=== PATIENT | female | born 1985 | race American Indian/Alaskan Native ===

== ENCOUNTER 2017-08-29 16:16 | Inpatient (IN) | payer MEDICAID, OTHER ==
[2017-08-29 17:17] LABS: Hematocrit 38.1 % (30.3-42.9); Hemoglobin 12.4 gm/dl (10.1-14.3); Mean Corpuscular HGB Conc 32 % (30-34); Mean Corpuscular Volume 74 fl (79-97); Platelet Count 372 K/mm3 (140-440); Red Blood Count 5.17 M/mm3 (3.65-5.03); Red Cell Distribution Width 13.9 % (13.2-15.2)
[2017-08-29 17:24] LABS: Alanine Aminotransferase 13 units/L (7-56); Albumin/Globulin Ratio 1.2 %; Alkaline Phosphatase 123 units/L (35-129); Anion Gap 20 mmol/L; BUN/Creatinine Ratio 40; Blood Urea Nitrogen 8 mg/dL (7-17); Calcium 9.2 mg/dL (8.4-10.2); Carbon Dioxide 23 mmol/L (22-30); Chloride 95.5 mmol/L (98-107); Glucose 113 mg/dL (65-100); Lipase 19 units/L (13-60); Sodium 134 mmol/L (137-145); Total Protein 7.4 g/dL (6.3-8.2)
[2017-08-29 17:28] LABS: Mean Corpuscular Hemoglobin 24 pg (28-32); White Blood Count 23.7 K/mm3 (4.5-11.0)
[2017-08-29 17:36] LABS: Bilirubin,Urine NEG (Negative); Blood,Urine NEG (Negative); Ketones,Urine 20 mg/dL (Negative); Leukocyte Esterase,Urine NEG (Negative); Mucus,Urine 3+ /HPF; Nitrite,Urine NEG (Negative); Protein,Urine <15 mg/dL mg/dL (Negative); Urobilinogen,Urine < 2.0 mg/dL (<2.0)
[2017-08-29 19:50] LABS: Anisocytosis 1+; Basophils % (Manual) 0 % (0.0-1.8); Blastocytes % (Manual) 0 %; Elliptocytes 1+; Eosinophils % (Manual) 0 % (0.0-4.3); Total Cells Counted Percent 0
[2017-08-29 19:51] LABS: Diff Status Complete; Platelet Estimate Consistent w Auto
[2017-08-29] MEDS ORDERED: NACL 0.9% 1000 ML 1,000 ML ONE (20:49)
[2017-08-29] MEDS ORDERED: NACL 0.9% 1000 ML 1,000 ML IV ONE (20:50)
[2017-08-29] MEDS ORDERED: ZOFRAN IV ONE (20:53)
[2017-08-29] MEDS ORDERED: MORPHINE IV ONE ×2 (20:53→23:04)
--- NOTE | 2017-08-29 20:55 | Emergency Department Report ---
HPI - General Chief Complaint: Abdominal Pain Time Seen by Provider: 08/29/17 20:48 - HPI HPI: 32-year-old Afro-Bangl[place]hi female presents to the emergency department with complaint of a few days of lower abdominal and/or pelvic pain and now some nausea and vomiting that started today. Patient says that she might be as her last menstrual cycle was June 13, and she had a home test. However a few weeks ago she went to a emergency department in [place] and was told that she might be having a miscarriage. With this she would be with 3 live children. She denies any fever, dysuria, cough, vaginal discharge, current vaginal bleeding, back pain, chest pain or shortness of breath. She has not taken anything for her symptoms prior to presentation. She does not have an HIGH SPEED PRINTER OPERATOR or a primary care physician. She denies any other past medical history besides a previous "liver mass" that was removed last year. ED Past Medical Hx - Past Medical History Previous Medical History?: No - Surgical History Hx Appendectomy: Yes Additional Surgical History: abd mass from liver - Social History Smoking Status: Never Smoker Substance Use Type: None - Medications Home Medications: Home Medications Medication Instructions Recorded Confirmed Last Taken Type No Known Home Medications [No 08/30/17 08/30/17 Unknown History Reported Home Medications] ED Review of Systems ROS: Stated complaint: PREG, VOMITING ABDOMINAL PAIN Other details as noted in HPI Comment: All other systems reviewed and negative Constitutional: denies: chills, fever Eyes: denies: eye pain, eye discharge, vision change ENT: denies: ear pain, throat pain Respiratory: denies: cough, shortness of breath, wheezing Cardiovascular: denies: chest pain, palpitations Gastrointestinal: abdominal pain, nausea, vomiting Genitourinary: denies: dysuria, discharge Musculoskeletal: denies: back pain, joint swelling, arthralgia Skin: denies: rash, lesions Neurological: denies: headache, weakness, paresthesias Physical Exam - Physical Exam Vital Signs: Vital Signs 08/29/17 16:44 Temperature 98.2 F Pulse Rate 127 H Respiratory 20 Rate Blood Pressure 128/71 O2 Sat by Pulse 98 Oximetry Physical Exam: GENERAL: The patient is well-developed well-nourished. HENT: Normocephalic. Atraumatic. Patient has moist mucous membranes. EYES: Extraocular motions are intact. Pupils equal reactive to light bilaterally. NECK: Supple. Trachea is midline. CHEST/LUNGS: Clear to auscultation. There is no respiratory distress noted. HEART/CARDIOVASCULAR: Regular. There is mild to moderate tachycardia. There is no gallop rub or murmur. ABDOMEN: Abdomen is soft. Lower abdominal tenderness to palpation. No guarding or rebound tenderness. Patient has normal bowel sounds. There is no abdominal distention. SKIN: Skin is warm and dry. NEURO: The patient is awake, alert, and oriented. The patient is cooperative. The patient has no focal neurologic deficits. The patient has normal speech. MUSCULOSKELETAL: There is no tenderness or deformity. There is no limitation range of motion. There is no evidence of acute injury. ED Course Vital Signs 08/29/17 16:44 Temperature 98.2 F Pulse Rate 127 H Respiratory 20 Rate Blood Pressure 128/71 O2 Sat by Pulse 98 Oximetry - Consultations Consultation #1: After the patient had the ultrasound showing no intrauterine or extrauterine gestation with a beta hCG of 12, spoke to the HIGH SPEED PRINTER OPERATOR supervisor inspection Dr. Sampson who agrees that the patient appears safe for CT imaging of the abdomen and pelvis as she appears to have had a previous miscarriage. 08/30/17 05:09 ED Medical Decision Making - Lab Data Result diagrams: 08/29/17 16:53 08/29/17 16:53 - Radiology Data Radiology results: report reviewed PROCEDURE: CT ABDOMEN PELVIS W CON TECHNIQUE: Computerized axial tomography of the abdomen and pelvis was performed after the IV injection of iodinated nonionic contrast. HISTORY: abd/pelvic pain COMPARISON: No prior studies are available for comparison. FINDINGS: Visualized lower thorax: No significant abnormality. Liver: Normal size and attenuation. Spleen: Normal size and attenuation. Gallbladder and biliary system: Normal. Pancreas: Normal. Adrenals: Normal. Kidneys: Normal. GI tract: There is mucosal thickening of the sigmoid and left colon consistent with colitis. There is no obstruction or perforation. The stomach, small bowel are unremarkable. The appendix is not identified.. Lymph nodes and mesentery: Normal. Vasculature: There is no aortic aneurysm.. Bladder: Normal. Reproductive organs: Uterus and ovaries are unremarkable. There are prominent left pelvic veins and left ovarian vein which could be evidence of ovarian vein insufficiency and pelvic venous congestion syndrome. There is no thrombosis.. Peritoneum: There is no ascites or free air, abscess or adenopathy.. Musculoskeletal structures: No significant abnormality. Other: None. IMPRESSION: There is mucosal thickening of the sigmoid and left colon consistent with colitis. There is no obstruction or perforation. The stomach, small bowel are unremarkable. The appendix is not identified.. There is no indirect evidence of appendicitis. There are prominent left pelvic veins and left ovarian vein which could be evidence of ovarian vein insufficiency and pelvic venous congestion syndrome. There is no venous thrombosis.. There is no ascites or free air, abscess or adenopathy.. Transcribed By: CO Dictated By: MELISSA BERNAL MD Electronically Authenticated By: MELISSA BERNAL MD Signed Date/Time: 08/29/17 9524 PROCEDURE: US OB TRANSVAGINAL TECHNIQUE: Real-time transvaginal sonography of the uterus, placenta, amniotic fluid, adnexa, and fetus was performed with image documentation. Measurements were obtained to determine age/size. M-mode Doppler was used to document heartbeat. CPT 62903 HISTORY: pelvic pain, low BHCG, leukocytosis COMPARISON: Transabdominal OB ultrasound also performed today. FINDINGS: The report for this exam was generated using images from both the transabdominal and a transvaginal OB ultrasound both of which were performed today. The uterus is anteverted and measures 8.7 x 4.7 x 5.1 centimeter. The endometrial stripe measures 6.2 millimeter in thickness. There is no fluid in the endometrial canal. No evidence of intrauterine gestation. Gestational sac is not visualized. No free fluid is seen in the cul-de-sac. The right and left ovaries are visualized and show no abnormalities. Small peripheral follicles are visualized. Arterial flow visualized in both ovaries with Doppler imaging IMPRESSION: Negative exam. No acute or focal abnormality is seen. There is no evidence for intrauterine gestation. Recommend correlating this finding with serial beta HCG units and follow-up pelvic ultrasound if clinically indicated. Ectopic cannot be entirely excluded at this time. An ectopic is not visualized at this time. - Medical Decision Making The patient had a beta hCG of 12 and then an ultrasound that did not show any intrauterine or extrauterine gestation. Along with her history of possible miscarriage after visiting the [facility], and a beta hCG of 12, it does appear consistent with a spontaneous miscarriage. She has a leukocytosis with left shift, lower abdominal pain and tachycardia. CT of the abdomen and pelvis was done and came back showing colitis. Blood cultures were sent and the patient was started on Zosyn. She will be admitted to the hospital for further evaluation and treatment and has been accepted for admission by the hospitalist , Dr Mann. - Differential Diagnosis , miscarriage, diverticulitis, colitis, sepsis, uti Critical Care Time: No Critical care attestation.: If time is entered above; I have spent that time in minutes in the direct care of this critically ill patient, excluding procedure time. ED Disposition Clinical Impression: Colitis Abdominal pain Qualifiers: Abdominal location: lower abdomen, unspecified Qualified Code(s): R10.30 - Lower abdominal pain, unspecified Leukocytosis Qualifiers: Leukocytosis type: unspecified Qualified Code(s): D72.829 - Elevated white blood cell count, unspecified Disposition: -09 OP ADMIT IP TO THIS HOSP Is pt being admited?: Yes Condition: Stable Instructions: Abdominal Pain (ED) Referrals: PRIMARY CARE, [Primary Care Provider] - 3-5 Days Time of Disposition: 03:55
[2017-08-29] MEDS ORDERED: BENADRYL ONE (21:22)
[2017-08-29] MEDS ORDERED: BENADRYL IV ONE (21:22)
--- NOTE | 2017-08-29 22:18 | Ultrasound Report ---
FINAL REPORT PROCEDURE: US OB < = 14 WEEKS FETUS TECHNIQUE: Real-time transabdominal sonography of the uterus, placenta, amniotic fluid, adnexa, and fetus was performed with image documentation. Measurements were obtained to determine age/size. M-mode Doppler was used to document heartbeat. CPT 43880 HISTORY: pelvic pain, low BHCG, leukocytosis COMPARISON: Transvaginal OB ultrasound also performed today. FINDINGS: The report for this exam was generated using images from both the transabdominal and a transvaginal OB ultrasound both of which were performed today. The uterus is anteverted and measures 8.7 x 4.7 x 5.1 centimeter. The endometrial stripe measures 6.2 millimeter in thickness. There is no fluid in the endometrial canal. No evidence of intrauterine gestation. Gestational sac is not visualized. No free fluid is seen in the cul-de-sac. The right and left ovaries are visualized and show no abnormalities. Small peripheral follicles are visualized. Arterial flow visualized in both ovaries with Doppler imaging. IMPRESSION: Negative exam. No acute or focal abnormality is seen. There is no evidence for intrauterine gestation. Recommend correlating this finding with serial beta HCG units and follow-up pelvic ultrasound if clinically indicated. Ectopic cannot be entirely excluded at this time. An ectopic is not visualized at this time.
--- NOTE | 2017-08-29 22:19 | Ultrasound Report ---
FINAL REPORT PROCEDURE: US OB TRANSVAGINAL TECHNIQUE: Real-time transvaginal sonography of the uterus, placenta, amniotic fluid, adnexa, and fetus was performed with image documentation. Measurements were obtained to determine age/size. M-mode Doppler was used to document heartbeat. CPT 43255 HISTORY: pelvic pain, low BHCG, leukocytosis COMPARISON: Transabdominal OB ultrasound also performed today. FINDINGS: The report for this exam was generated using images from both the transabdominal and a transvaginal OB ultrasound both of which were performed today. The uterus is anteverted and measures 8.7 x 4.7 x 5.1 centimeter. The endometrial stripe measures 6.2 millimeter in thickness. There is no fluid in the endometrial canal. No evidence of intrauterine gestation. Gestational sac is not visualized. No free fluid is seen in the cul-de-sac. The right and left ovaries are visualized and show no abnormalities. Small peripheral follicles are visualized. Arterial flow visualized in both ovaries with Doppler imaging IMPRESSION: Negative exam. No acute or focal abnormality is seen. There is no evidence for intrauterine gestation. Recommend correlating this finding with serial beta HCG units and follow-up pelvic ultrasound if clinically indicated. Ectopic cannot be entirely excluded at this time. An ectopic is not visualized at this time.
[2017-08-29] MEDS ORDERED: NACL ONE (23:47)
--- NOTE | 2017-08-30 03:41 | Cat Scan Report ---
FINAL REPORT PROCEDURE: CT ABDOMEN PELVIS W CON TECHNIQUE: Computerized axial tomography of the abdomen and pelvis was performed after the IV injection of iodinated nonionic contrast. HISTORY: abd/pelvic pain COMPARISON: No prior studies are available for comparison. FINDINGS: Visualized lower thorax: No significant abnormality. Liver: Normal size and attenuation. Spleen: Normal size and attenuation. Gallbladder and biliary system: Normal. Pancreas: Normal. Adrenals: Normal. Kidneys: Normal. GI tract: There is mucosal thickening of the sigmoid and left colon consistent with colitis. There is no obstruction or perforation. The stomach, small bowel are unremarkable. The appendix is not identified.. Lymph nodes and mesentery: Normal. Vasculature: There is no aortic aneurysm.. Bladder: Normal. Reproductive organs: Uterus and ovaries are unremarkable. There are prominent left pelvic veins and left ovarian vein which could be evidence of ovarian vein insufficiency and pelvic venous congestion syndrome. There is no thrombosis.. Peritoneum: There is no ascites or free air, abscess or adenopathy.. Musculoskeletal structures: No significant abnormality. Other: None. IMPRESSION: There is mucosal thickening of the sigmoid and left colon consistent with colitis. There is no obstruction or perforation. The stomach, small bowel are unremarkable. The appendix is not identified.. There is no indirect evidence of appendicitis. There are prominent left pelvic veins and left ovarian vein which could be evidence of ovarian vein insufficiency and pelvic venous congestion syndrome. There is no venous thrombosis.. There is no ascites or free air, abscess or adenopathy..
[2017-08-30] MEDS ORDERED: ZOSYN/NS 4.5GM/100ML 4.5 GM/100 ML VIAL IV ONE (03:45)
[2017-08-30] MEDS ORDERED: MORPHINE IV ONE (05:28)
[2017-08-30] MEDS: HEPARIN SUB-Q SCH ×3 (05:37→22:58)
--- NOTE | 2017-08-30 07:20 | History and Physical Report ---
History of Present Illness Date of admission: 08/30/17 03:56 Chief complaint: Lower abdominal pain History of present illness: 32-year-old woman with no chronic medical problems By her accounts was . Last menstrual cycle was June 13. And she took a home test to confirm . She states that she was seen at [place] emergency departments a few weeks ago and she was told that she might be having a miscarriage, she was having vaginal bleeding at that time which has now resolved. She denies any fever, dysuria, cough or vaginal discharge. She's not currently bleeding from her vagina. She is complaining of lower abdominal and pelvic pain along with nausea and vomiting. The pain is 6 out of 10 and it is dull is generalized exacerbating or relieving factors Past History Past Medical History: No medical history Past Surgical History: Other (removal of liver cyst) Social history: no significant social history Family history: no significant family history Medications and Allergies Allergies Allergy/AdvReac Type Severity Reaction Status Date / Time No Known Allergies Allergy Unverified 08/29/17 16:44 Home Medications Medication Instructions Recorded Confirmed Last Taken Type No Known Home Medications [No 08/30/17 08/30/17 Unknown History Reported Home Medications] Active Meds: Active Medications Heparin Sodium (Porcine) (Heparin) 5,000 unit SUB-Q Q8HR PERFECTO Last Admin: 08/30/17 05:37 Dose: 5,000 unit Review of Systems All systems: negative Gastrointestinal: abdominal pain, nausea, vomiting, no diarrhea Exam - Constitutional Vitals: Temp Pulse Resp BP Pulse Ox 98.4 F 101 H 17 119/75 96 08/30/17 05:57 08/30/17 03:50 08/30/17 01:30 08/30/17 07:00 08/30/17 07:00 General appearance: Present: no acute distress, well-nourished - EENT Eyes: Present: PERRL ENT: hearing intact, clear oral mucosa - Neck Neck: Present: supple, normal ROM - Respiratory Respiratory effort: normal Respiratory: bilateral: CTA - Cardiovascular Heart Sounds: Present: S1 & S2. Absent: rub, click - Extremities Extremities: pulses symmetrical, No edema Peripheral Pulses: within normal limits - Abdominal General gastrointestinal: Present: soft, non-distended, normal bowel sounds Localized gastrointestinal: guarding: suprapubic Female genitourinary: Present: normal - Integumentary Integumentary: Present: clear, warm, dry - Musculoskeletal Musculoskeletal: gait normal, strength equal bilaterally - Psychiatric Psychiatric: appropriate mood/affect, intact judgment & insight - Neurologic Neurologic: CNII-XII intact, moves all extremities Results - Labs CBC & Chem 7: 08/29/17 16:53 08/29/17 16:53 Labs: Laboratory Last Values WBC 23.7 K/mm3 (4.5-11.0) H 08/29/17 16:53 RBC 5.17 M/mm3 (3.65-5.03) H 08/29/17 16:53 Hgb 12.4 gm/dl (10.1-14.3) 08/29/17 16:53 Hct 38.1 % (30.3-42.9) 08/29/17 16:53 MCV 74 fl (79-97) L 08/29/17 16:53 MCH 24 pg (28-32) L 08/29/17 16:53 MCHC 32 % (30-34) 08/29/17 16:53 RDW 13.9 % (13.2-15.2) 08/29/17 16:53 Plt Count 372 K/mm3 (140-440) 08/29/17 16:53 Add Manual Diff Complete 08/29/17 16:53 Total Counted 100 08/29/17 16:53 Seg Neuts % (Manual) 87.0 % (40.0-70.0) H 08/29/17 16:53 Band Neutrophils % 4.0 % 08/29/17 16:53 Lymphocytes % (Manual) 9.0 % (13.4-35.0) L 08/29/17 16:53 Reactive Lymphs % (Man) 0 % 08/29/17 16:53 Monocytes % (Manual) 0 % (0.0-7.3) 08/29/17 16:53 Eosinophils % (Manual) 0 % (0.0-4.3) 08/29/17 16:53 Basophils % (Manual) 0 % (0.0-1.8) 08/29/17 16:53 Metamyelocytes % 0 % 08/29/17 16:53 Myelocytes % 0 % 08/29/17 16:53 Promyelocytes % 0 % 08/29/17 16:53 Blast Cells % 0 % 08/29/17 16:53 Nucleated RBC % Not Reportable 08/29/17 16:53 Seg Neutrophils # Man 20.6 K/mm3 (1.8-7.7) H 08/29/17 16:53 Band Neutrophils # 0.9 K/mm3 08/29/17 16:53 Lymphocytes # (Manual) 2.1 K/mm3 (1.2-5.4) 08/29/17 16:53 Abs React Lymphs (Man) 0.0 K/mm3 08/29/17 16:53 Monocytes # (Manual) 0.0 K/mm3 (0.0-0.8) 08/29/17 16:53 Eosinophils # (Manual) 0.0 K/mm3 (0.0-0.4) 08/29/17 16:53 Basophils # (Manual) 0.0 K/mm3 (0.0-0.1) 08/29/17 16:53 Metamyelocytes # 0.0 K/mm3 08/29/17 16:53 Myelocytes # 0.0 K/mm3 08/29/17 16:53 Promyelocytes # 0.0 K/mm3 08/29/17 16:53 Blast Cells # 0.0 K/mm3 08/29/17 16:53 WBC Morphology Not Reportable 08/29/17 16:53 Hypersegmented Neuts Not Reportable 08/29/17 16:53 Hyposegmented Neuts Not Reportable 08/29/17 16:53 Hypogranular Neuts Not Reportable 08/29/17 16:53 Smudge Cells Not Reportable 08/29/17 16:53 Toxic Granulation Not Reportable 08/29/17 16:53 Toxic Vacuolation Not Reportable 08/29/17 16:53 Dohle Bodies Not Reportable 08/29/17 16:53 Pelger-Huet Anomaly Not Reportable 08/29/17 16:53 Lee Rods Not Reportable 08/29/17 16:53 Platelet Estimate Consistent w auto 08/29/17 16:53 Clumped Platelets Not Reportable 08/29/17 16:53 Plt Clumps, EDTA Not Reportable 08/29/17 16:53 Large Platelets Not Reportable 08/29/17 16:53 Giant Platelets Not Reportable 08/29/17 16:53 Platelet Satelliting Not Reportable 08/29/17 16:53 Plt Morphology Comment Not Reportable 08/29/17 16:53 RBC Morphology Not Reportable 08/29/17 16:53 Dimorphic RBCs Not Reportable 08/29/17 16:53 Polychromasia Not Reportable 08/29/17 16:53 Hypochromasia Not Reportable 08/29/17 16:53 Poikilocytosis Not Reportable 08/29/17 16:53 Anisocytosis 1+ 08/29/17 16:53 Microcytosis Not Reportable 08/29/17 16:53 Macrocytosis Not Reportable 08/29/17 16:53 Spherocytes Not Reportable 08/29/17 16:53 Pappenheimer Bodies Not Reportable 08/29/17 16:53 Sickle Cells Not Reportable 08/29/17 16:53 Target Cells Not Reportable 08/29/17 16:53 Tear Drop Cells Not Reportable 08/29/17 16:53 Ovalocytes Not Reportable 08/29/17 16:53 Helmet Cells Not Reportable 08/29/17 16:53 [place] Bodies Not Reportable 08/29/17 16:53 [place] Rings Not Reportable 08/29/17 16:53 Evan Cells Not Reportable 08/29/17 16:53 Bite Cells Not Reportable 08/29/17 16:53 Crenated Cell Not Reportable 08/29/17 16:53 Elliptocytes 1+ 08/29/17 16:53 Acanthocytes (Spur) Not Reportable 08/29/17 16:53 Rouleaux Not Reportable 08/29/17 16:53 Hemoglobin C Crystals Not Reportable 08/29/17 16:53 Schistocytes Not Reportable 08/29/17 16:53 Malaria parasites Not Reportable 08/29/17 16:53 Vasile Bodies Not Reportable 08/29/17 16:53 Hem Pathologist Commnt No 08/29/17 16:53 Sodium 134 mmol/L (137-145) L 08/29/17 16:53 Potassium 4.0 mmol/L (3.6-5.0) 08/29/17 16:53 Chloride 95.5 mmol/L (98-107) L 08/29/17 16:53 Carbon Dioxide 23 mmol/L (22-30) 08/29/17 16:53 Anion Gap 20 mmol/L 08/29/17 16:53 BUN 8 mg/dL (7-17) 08/29/17 16:53 Creatinine 0.2 mg/dL (0.7-1.2) L 08/29/17 16:53 Estimated GFR > 60 ml/min 08/29/17 16:53 BUN/Creatinine Ratio 40 % 08/29/17 16:53 Glucose 113 mg/dL (65-100) H 08/29/17 16:53 Calcium 9.2 mg/dL (8.4-10.2) 08/29/17 16:53 Total Bilirubin 0.20 mg/dL (0.1-1.2) 08/29/17 16:53 AST 11 units/L (5-40) 08/29/17 16:53 ALT 13 units/L (7-56) 08/29/17 16:53 Alkaline Phosphatase 123 units/L (35-129) 08/29/17 16:53 Total Protein 7.4 g/dL (6.3-8.2) 08/29/17 16:53 Albumin 4.0 g/dL (3.9-5) 08/29/17 16:53 Albumin/Globulin Ratio 1.2 % 08/29/17 16:53 Lipase 19 units/L (13-60) 08/29/17 16:53 HCG, Quant 12.23 mIU/mL (0-4) H 08/29/17 16:53 Urine Color Yellow (Yellow) 08/29/17 17:00 Urine Turbidity Clear (Clear) 08/29/17 17:00 Urine pH 5.0 (5.0-7.0) 08/29/17 17:00 Ur Specific [place] 1.026 (1.003-1.030) 08/29/17 17:00 Urine Protein <15 mg/dl mg/dL (Negative) 08/29/17 17:00 Urine Glucose (UA) Neg mg/dL (Negative) 08/29/17 17:00 Urine Ketones 20 mg/dL (Negative) 08/29/17 17:00 Urine Blood Neg (Negative) 08/29/17 17:00 Urine Nitrite Neg (Negative) 08/29/17 17:00 Urine Bilirubin Neg (Negative) 08/29/17 17:00 Urine Urobilinogen < 2.0 mg/dL (<2.0) 08/29/17 17:00 Ur Leukocyte Esterase Neg (Negative) 08/29/17 17:00 Urine WBC (Auto) 1.0 /HPF (0.0-6.0) 08/29/17 17:00 Urine RBC (Auto) 3.0 /HPF (0.0-6.0) 08/29/17 17:00 U Epithel Cells (Auto) 1.0 /HPF (0-13.0) 08/29/17 17:00 Urine Mucus 3+ /HPF 08/29/17 17:00 - Imaging and Cardiology CT scan - abdomen: image reviewed (colitis) Imaging and Cardiology: Trans vag U/S no fetus is seen Assessment and Plan Assessment and plan: 32-year-old woman who was . Was told that she might have been having miscarriage 2 weeks ago and another facility. Presents now with abdominal pain. HCG numbers are too low to correlates with the duration of her supposedly , and imaging shows no fetus and the uterus. Therefore it is most likely that she had a miscarriage. - Patient Problems (1) Sepsis Current Visit: Yes Status: Acute Plan to address problem: Continue antibiotics. (2) Miscarriage Current Visit: Yes Status: Acute Plan to address problem: HISTORY PROFESSOR has been consulted, will follow-up the recommendations (3) Colitis Current Visit: Yes Status: Acute Plan to address problem: continue abx, IVF and pain meds as needed
[2017-08-30] MEDS ORDERED: TYLENOL PO PRN (07:26)
[2017-08-30] MEDS ORDERED: MILK OF MAGNESIA PO PRN (07:26)
[2017-08-30] MEDS ORDERED: DULCOLAX PR PRN (07:26)
[2017-08-30] MEDS: FLAGYL 500 MG/100 ML 500 MG/100 ML BAG IV SCH ×3 (10:04→22:51)
[2017-08-30] MEDS: MORPHINE IV PRN ×3 (10:04→23:07)
[2017-08-30] MEDS: ZOFRAN IV PRN (10:05)
[2017-08-30] MEDS: cefTRIAXone 1 GM in NACL 0.9% 20 ML IV SCH (11:22)
--- NOTE | 2017-08-30 13:01 | Event Note ---
Date: 08/30/17 Patient was admitted overnight to sepsis colitis. Patient seen and examined. Abdominal pain is improved. Still with nausea vomiting.
[2017-08-31] MEDS: MORPHINE IV PRN ×4 (05:05→21:12)
[2017-08-31] MEDS: ZOFRAN IV PRN ×2 (05:05→16:07)
[2017-08-31 05:35] LABS: Basophils % (Auto) 0.3 % (0.0-1.8); Eosinophils % (Auto) 0.2 % (0.0-4.3); Hematocrit 35.8 % (30.3-42.9); Hemoglobin 11.5 gm/dl (10.1-14.3); Mean Corpuscular HGB Conc 32 % (30-34); Mean Corpuscular Hemoglobin 24 pg (28-32); Mean Corpuscular Volume 74 fl (79-97); Platelet Count 340 K/mm3 (140-440); Red Blood Count 4.85 M/mm3 (3.65-5.03); Red Cell Distribution Width 13.7 % (13.2-15.2); White Blood Count 13.7 K/mm3 (4.5-11.0)
[2017-08-31] MEDS: FLAGYL 500 MG/100 ML 500 MG/100 ML BAG IV SCH ×3 (05:55→21:12)
[2017-08-31] MEDS: HEPARIN SUB-Q SCH ×3 (05:55→21:13)
[2017-08-31 05:58] LABS: Anion Gap 22 mmol/L; BUN/Creatinine Ratio 45; Blood Urea Nitrogen 9 mg/dL (7-17); Calcium 9.3 mg/dL (8.4-10.2); Carbon Dioxide 21 mmol/L (22-30); Chloride 97.8 mmol/L (98-107); Glucose 81 mg/dL (65-100); Potassium 3.8 mmol/L (3.6-5.0); Sodium 137 mmol/L (137-145)
[2017-08-31] MEDS: cefTRIAXone 1 GM in NACL 0.9% 20 ML IV SCH (10:55)
--- NOTE | 2017-08-31 11:43 | Progress Note ---
Assessment and Plan Assessment and plan: Patient is a 32-year-old woman who was . Was told that she might have been having miscarriage 2 weeks ago and another facility. Presents now with abdominal pain. HCG numbers are too low to correlates with the duration of her supposedly , and imaging shows no fetus and the uterus. Therefore it is most likely that she had a miscarriage. (1) Sepsis colitis Current Visit: Yes Status: Acute Plan to address problem: Continue antibiotics. (2) Miscarriage Current Visit: Yes Status: Acute Plan to address problem: COIL STRAPPER has been consulted, will follow-up the recommendations (3) Colitis Current Visit: Yes Status: Acute Plan to address problem: continue abx, IVF and pain meds as needed Advance diet to liquids only and she can tolerate that she can go home tomorrow History Interval history: Patient was seen and examined. Follow-up on current diagnosis/nausea vomiting still present with solids but not liquids. Overnight uneventful. Patient denies any chest pain, shortness breath, or severe headaches. Imaging, nursing note, chart, labs and old chart reviewed. Discussed with patient. Patient is able to tolerate liquid diet she vomited up solid foods Hospitalist Physical - Physical exam Narrative exam: GEN: Thin BMI 17.6 NAD, AWAKE, ALERT, ORIENTATED 3 HEENT: NCAT, EOMI, PERRL, OP Clear NECK: supple, no adenopathy, no thyromegaly, no JVD CVS/HEART: RRR, NORMAL S1S2, NO JVD, pulses present bilaterally CHEST/LUNGS: CTA B, Symmetrical chest expansion, good air entry bilaterally GI/Abdomen: soft, NTND, good bowel sounds, no guarding or rebound /Bladder: no suprapubic tenderness, no CVA or paraspinal tenderness EXT/Skin: no c/c/e, no obvious rash MSK: FROM x 4 Neuro: CN 2-12 grossly intact, no new focal deficits Psych: calm - Constitutional Vitals: Temp Pulse Resp BP Pulse Ox 98.9 F 101 H 20 117/69 97 08/31/17 07:38 08/31/17 07:38 08/31/17 10:10 08/31/17 07:38 08/31/17 07:38 General appearance: Present: no acute distress, well-nourished Results - Labs CBC & Chem 7: 08/31/17 05:15 08/31/17 05:15 Labs: Laboratory Last Values WBC 13.7 K/mm3 (4.5-11.0) H 08/31/17 05:15 RBC 4.85 M/mm3 (3.65-5.03) 08/31/17 05:15 Hgb 11.5 gm/dl (10.1-14.3) 08/31/17 05:15 Hct 35.8 % (30.3-42.9) 08/31/17 05:15 MCV 74 fl (79-97) L 08/31/17 05:15 MCH 24 pg (28-32) L 08/31/17 05:15 MCHC 32 % (30-34) 08/31/17 05:15 RDW 13.7 % (13.2-15.2) 08/31/17 05:15 Plt Count 340 K/mm3 (140-440) 08/31/17 05:15 Lymph % (Auto) 22.4 % (13.4-35.0) 08/31/17 05:15 [place] % (Auto) 10.1 % (0.0-7.3) H 08/31/17 05:15 Eos % (Auto) 0.2 % (0.0-4.3) 08/31/17 05:15 Baso % (Auto) 0.3 % (0.0-1.8) 08/31/17 05:15 Lymph # 3.1 K/mm3 (1.2-5.4) 08/31/17 05:15 [place] # 1.4 K/mm3 (0.0-0.8) H 08/31/17 05:15 Eos # 0.0 K/mm3 (0.0-0.4) 08/31/17 05:15 Baso # 0.0 K/mm3 (0.0-0.1) 08/31/17 05:15 Add Manual Diff Complete 08/29/17 16:53 Total Counted 100 08/29/17 16:53 Seg Neutrophils % 67.0 % (40.0-70.0) 08/31/17 05:15 Seg Neuts % (Manual) 87.0 % (40.0-70.0) H 08/29/17 16:53 Band Neutrophils % 4.0 % 08/29/17 16:53 Lymphocytes % (Manual) 9.0 % (13.4-35.0) L 08/29/17 16:53 Reactive Lymphs % (Man) 0 % 08/29/17 16:53 Monocytes % (Manual) 0 % (0.0-7.3) 08/29/17 16:53 Eosinophils % (Manual) 0 % (0.0-4.3) 08/29/17 16:53 Basophils % (Manual) 0 % (0.0-1.8) 08/29/17 16:53 Metamyelocytes % 0 % 08/29/17 16:53 Myelocytes % 0 % 08/29/17 16:53 Promyelocytes % 0 % 08/29/17 16:53 Blast Cells % 0 % 08/29/17 16:53 Nucleated RBC % Not Reportable 08/29/17 16:53 Seg Neutrophils # 9.2 K/mm3 (1.8-7.7) H 08/31/17 05:15 Seg Neutrophils # Man 20.6 K/mm3 (1.8-7.7) H 08/29/17 16:53 Band Neutrophils # 0.9 K/mm3 08/29/17 16:53 Lymphocytes # (Manual) 2.1 K/mm3 (1.2-5.4) 08/29/17 16:53 Abs React Lymphs (Man) 0.0 K/mm3 08/29/17 16:53 Monocytes # (Manual) 0.0 K/mm3 (0.0-0.8) 08/29/17 16:53 Eosinophils # (Manual) 0.0 K/mm3 (0.0-0.4) 08/29/17 16:53 Basophils # (Manual) 0.0 K/mm3 (0.0-0.1) 08/29/17 16:53 Metamyelocytes # 0.0 K/mm3 08/29/17 16:53 Myelocytes # 0.0 K/mm3 08/29/17 16:53 Promyelocytes # 0.0 K/mm3 08/29/17 16:53 Blast Cells # 0.0 K/mm3 08/29/17 16:53 WBC Morphology Not Reportable 08/29/17 16:53 Hypersegmented Neuts Not Reportable 08/29/17 16:53 Hyposegmented Neuts Not Reportable 08/29/17 16:53 Hypogranular Neuts Not Reportable 08/29/17 16:53 Smudge Cells Not Reportable 08/29/17 16:53 Toxic Granulation Not Reportable 08/29/17 16:53 Toxic Vacuolation Not Reportable 08/29/17 16:53 Dohle Bodies Not Reportable 08/29/17 16:53 Pelger-Huet Anomaly Not Reportable 08/29/17 16:53 Lee Rods Not Reportable 08/29/17 16:53 Platelet Estimate Consistent w auto 08/29/17 16:53 Clumped Platelets Not Reportable 08/29/17 16:53 Plt Clumps, EDTA Not Reportable 08/29/17 16:53 Large Platelets Not Reportable 08/29/17 16:53 Giant Platelets Not Reportable 08/29/17 16:53 Platelet Satelliting Not Reportable 08/29/17 16:53 Plt Morphology Comment Not Reportable 08/29/17 16:53 RBC Morphology Not Reportable 08/29/17 16:53 Dimorphic RBCs Not Reportable 08/29/17 16:53 Polychromasia Not Reportable 08/29/17 16:53 Hypochromasia Not Reportable 08/29/17 16:53 Poikilocytosis Not Reportable 08/29/17 16:53 Anisocytosis 1+ 08/29/17 16:53 Microcytosis Not Reportable 08/29/17 16:53 Macrocytosis Not Reportable 08/29/17 16:53 Spherocytes Not Reportable 08/29/17 16:53 Pappenheimer Bodies Not Reportable 08/29/17 16:53 Sickle Cells Not Reportable 08/29/17 16:53 Target Cells Not Reportable 08/29/17 16:53 Tear Drop Cells Not Reportable 08/29/17 16:53 Ovalocytes Not Reportable 08/29/17 16:53 Helmet Cells Not Reportable 08/29/17 16:53 [place] Bodies Not Reportable 08/29/17 16:53 [place] Rings Not Reportable 08/29/17 16:53 [place] Cells Not Reportable 08/29/17 16:53 Bite Cells Not Reportable 08/29/17 16:53 Crenated Cell Not Reportable 08/29/17 16:53 Elliptocytes 1+ 08/29/17 16:53 Acanthocytes (Spur) Not Reportable 08/29/17 16:53 Rouleaux Not Reportable 08/29/17 16:53 Hemoglobin C Crystals Not Reportable 08/29/17 16:53 Schistocytes Not Reportable 08/29/17 16:53 Malaria parasites Not Reportable 08/29/17 16:53 Vasile Bodies Not Reportable 08/29/17 16:53 Hem Pathologist Commnt No 08/29/17 16:53 Sodium 137 mmol/L (137-145) 08/31/17 05:15 Potassium 3.8 mmol/L (3.6-5.0) 08/31/17 05:15 Chloride 97.8 mmol/L (98-107) L 08/31/17 05:15 Carbon Dioxide 21 mmol/L (22-30) L 08/31/17 05:15 Anion Gap 22 mmol/L 08/31/17 05:15 BUN 9 mg/dL (7-17) 08/31/17 05:15 Creatinine 0.2 mg/dL (0.7-1.2) L 08/31/17 05:15 Estimated GFR > 60 ml/min 08/31/17 05:15 BUN/Creatinine Ratio 45 % 08/31/17 05:15 Glucose 81 mg/dL (65-100) 08/31/17 05:15 Calcium 9.3 mg/dL (8.4-10.2) 08/31/17 05:15 Total Bilirubin 0.20 mg/dL (0.1-1.2) 08/29/17 16:53 AST 11 units/L (5-40) 08/29/17 16:53 ALT 13 units/L (7-56) 08/29/17 16:53 Alkaline Phosphatase 123 units/L (35-129) 08/29/17 16:53 Total Protein 7.4 g/dL (6.3-8.2) 08/29/17 16:53 Albumin 4.0 g/dL (3.9-5) 08/29/17 16:53 Albumin/Globulin Ratio 1.2 % 08/29/17 16:53 Lipase 19 units/L (13-60) 08/29/17 16:53 HCG, Quant 12.23 mIU/mL (0-4) H 08/29/17 16:53 Urine Color Yellow (Yellow) 08/29/17 17:00 Urine Turbidity Clear (Clear) 08/29/17 17:00 Urine pH 5.0 (5.0-7.0) 08/29/17 17:00 Ur Specific [place] 1.026 (1.003-1.030) 08/29/17 17:00 Urine Protein <15 mg/dl mg/dL (Negative) 08/29/17 17:00 Urine Glucose (UA) Neg mg/dL (Negative) 08/29/17 17:00 Urine Ketones 20 mg/dL (Negative) 08/29/17 17:00 Urine Blood Neg (Negative) 08/29/17 17:00 Urine Nitrite Neg (Negative) 08/29/17 17:00 Urine Bilirubin Neg (Negative) 08/29/17 17:00 Urine Urobilinogen < 2.0 mg/dL (<2.0) 08/29/17 17:00 Ur Leukocyte Esterase Neg (Negative) 08/29/17 17:00 Urine WBC (Auto) 1.0 /HPF (0.0-6.0) 08/29/17 17:00 Urine RBC (Auto) 3.0 /HPF (0.0-6.0) 08/29/17 17:00 U Epithel Cells (Auto) 1.0 /HPF (0-13.0) 08/29/17 17:00 Urine Mucus 3+ /HPF 08/29/17 17:00
[2017-09-01] MEDS: ZOFRAN IV PRN ×4 (02:13→21:13)
[2017-09-01] MEDS: MORPHINE IV PRN ×4 (02:13→17:44)
[2017-09-01 04:51] LABS: Hematocrit 37.3 % (30.3-42.9); Hemoglobin 12.4 gm/dl (10.1-14.3); Mean Corpuscular HGB Conc 33 % (30-34); Mean Corpuscular Hemoglobin 24 pg (28-32); Mean Corpuscular Volume 73 fl (79-97); Platelet Count 363 K/mm3 (140-440); Red Blood Count 5.11 M/mm3 (3.65-5.03); Red Cell Distribution Width 13.7 % (13.2-15.2); White Blood Count 6.7 K/mm3 (4.5-11.0)
[2017-09-01 05:12] LABS: Anion Gap 21 mmol/L; BUN/Creatinine Ratio 40; Blood Urea Nitrogen 8 mg/dL (7-17); Calcium 9.2 mg/dL (8.4-10.2); Carbon Dioxide 23 mmol/L (22-30); Chloride 103.3 mmol/L (98-107); Glucose 93 mg/dL (65-100); Potassium 4.2 mmol/L (3.6-5.0); Sodium 143 mmol/L (137-145)
[2017-09-01] MEDS: FLAGYL 500 MG/100 ML 500 MG/100 ML BAG IV SCH ×3 (05:51→21:16)
[2017-09-01] MEDS: HEPARIN SUB-Q SCH ×3 (05:51→21:17)
[2017-09-01] MEDS: cefTRIAXone 1 GM in NACL 0.9% 20 ML IV SCH (10:52)
--- NOTE | 2017-09-01 12:33 | Progress Note ---
Assessment and Plan Assessment and plan: Patient is a 32-year-old woman who was . Was told that she might have been having miscarriage 2 weeks ago and another facility. Presents now with abdominal pain. HCG numbers are too low to correlates with the duration of her supposedly , and imaging shows no fetus and the uterus. Therefore it is most likely that she had a miscarriage. - Sepsis colitis Current Visit: Yes Status: Acute Plan to address problem: Continue antibiotics. - Miscarriage Current Visit: Yes Status: Acute Plan to address problem: LANGUAGE SPECIALIST has been consulted, will follow-up the recommendations - Colitis Current Visit: Yes Status: Acute Plan to address problem: continue abx, IVF and pain meds as needed - Intractable nausea and vomiting, with liquids, will downgrade diet to NPO and consult GI. History Interval history: Patient was seen and examined. Follow-up on current diagnosis/nausea vomiting still present even with liquids. Overnight uneventful. Patient denies any chest pain, shortness breath, or severe headaches. Imaging, nursing note, chart , labs and old chart reviewed. Discussed with patient. Hospitalist Physical - Physical exam Narrative exam: GEN: Thin BMI 17.6 NAD, AWAKE, ALERT, ORIENTATED 3 HEENT: NCAT, EOMI, PERRL, OP Clear NECK: supple, no adenopathy, no thyromegaly, no JVD CVS/HEART: RRR, NORMAL S1S2, NO JVD, pulses present bilaterally CHEST/LUNGS: CTA B, Symmetrical chest expansion, good air entry bilaterally GI/Abdomen: soft, diffuse tenderness improved, good bowel sounds, no guarding or rebound /Bladder: no suprapubic tenderness, no CVA or paraspinal tenderness EXT/Skin: no c/c/e, no obvious rash MSK: FROM x 4 Neuro: CN 2-12 grossly intact, no new focal deficits Psych: calm - Constitutional Vitals: Temp Pulse Resp BP Pulse Ox 98.4 F 81 20 129/84 99 09/01/17 07:28 09/01/17 07:28 09/01/17 12:07 09/01/17 07:28 09/01/17 07:28 General appearance: Present: no acute distress, well-nourished Results - Labs CBC & Chem 7: 09/01/17 03:42 09/01/17 03:42 Labs: Laboratory Last Values WBC 6.7 K/mm3 (4.5-11.0) 09/01/17 03:42 RBC 5.11 M/mm3 (3.65-5.03) H 09/01/17 03:42 Hgb 12.4 gm/dl (10.1-14.3) 09/01/17 03:42 Hct 37.3 % (30.3-42.9) 09/01/17 03:42 MCV 73 fl (79-97) L 09/01/17 03:42 MCH 24 pg (28-32) L 09/01/17 03:42 MCHC 33 % (30-34) 09/01/17 03:42 RDW 13.7 % (13.2-15.2) 09/01/17 03:42 Plt Count 363 K/mm3 (140-440) 09/01/17 03:42 Lymph % (Auto) 22.4 % (13.4-35.0) 08/31/17 05:15 [place] % (Auto) 10.1 % (0.0-7.3) H 08/31/17 05:15 Eos % (Auto) 0.2 % (0.0-4.3) 08/31/17 05:15 Baso % (Auto) 0.3 % (0.0-1.8) 08/31/17 05:15 Lymph # 3.1 K/mm3 (1.2-5.4) 08/31/17 05:15 [place] # 1.4 K/mm3 (0.0-0.8) H 08/31/17 05:15 Eos # 0.0 K/mm3 (0.0-0.4) 08/31/17 05:15 Baso # 0.0 K/mm3 (0.0-0.1) 08/31/17 05:15 Add Manual Diff Complete 08/29/17 16:53 Total Counted 100 08/29/17 16:53 Seg Neutrophils % 67.0 % (40.0-70.0) 08/31/17 05:15 Seg Neuts % (Manual) 87.0 % (40.0-70.0) H 08/29/17 16:53 Band Neutrophils % 4.0 % 08/29/17 16:53 Lymphocytes % (Manual) 9.0 % (13.4-35.0) L 08/29/17 16:53 Reactive Lymphs % (Man) 0 % 08/29/17 16:53 Monocytes % (Manual) 0 % (0.0-7.3) 08/29/17 16:53 Eosinophils % (Manual) 0 % (0.0-4.3) 08/29/17 16:53 Basophils % (Manual) 0 % (0.0-1.8) 08/29/17 16:53 Metamyelocytes % 0 % 08/29/17 16:53 Myelocytes % 0 % 08/29/17 16:53 Promyelocytes % 0 % 08/29/17 16:53 Blast Cells % 0 % 08/29/17 16:53 Nucleated RBC % Not Reportable 08/29/17 16:53 Seg Neutrophils # 9.2 K/mm3 (1.8-7.7) H 08/31/17 05:15 Seg Neutrophils # Man 20.6 K/mm3 (1.8-7.7) H 08/29/17 16:53 Band Neutrophils # 0.9 K/mm3 08/29/17 16:53 Lymphocytes # (Manual) 2.1 K/mm3 (1.2-5.4) 08/29/17 16:53 Abs React Lymphs (Man) 0.0 K/mm3 08/29/17 16:53 Monocytes # (Manual) 0.0 K/mm3 (0.0-0.8) 08/29/17 16:53 Eosinophils # (Manual) 0.0 K/mm3 (0.0-0.4) 08/29/17 16:53 Basophils # (Manual) 0.0 K/mm3 (0.0-0.1) 08/29/17 16:53 Metamyelocytes # 0.0 K/mm3 08/29/17 16:53 Myelocytes # 0.0 K/mm3 08/29/17 16:53 Promyelocytes # 0.0 K/mm3 08/29/17 16:53 Blast Cells # 0.0 K/mm3 08/29/17 16:53 WBC Morphology Not Reportable 08/29/17 16:53 Hypersegmented Neuts Not Reportable 08/29/17 16:53 Hyposegmented Neuts Not Reportable 08/29/17 16:53 Hypogranular Neuts Not Reportable 08/29/17 16:53 Smudge Cells Not Reportable 08/29/17 16:53 Toxic Granulation Not Reportable 08/29/17 16:53 Toxic Vacuolation Not Reportable 08/29/17 16:53 Dohle Bodies Not Reportable 08/29/17 16:53 Pelger-Huet Anomaly Not Reportable 08/29/17 16:53 Lee Rods Not Reportable 08/29/17 16:53 Platelet Estimate Consistent w auto 08/29/17 16:53 Clumped Platelets Not Reportable 08/29/17 16:53 Plt Clumps, EDTA Not Reportable 08/29/17 16:53 Large Platelets Not Reportable 08/29/17 16:53 Giant Platelets Not Reportable 08/29/17 16:53 Platelet Satelliting Not Reportable 08/29/17 16:53 Plt Morphology Comment Not Reportable 08/29/17 16:53 RBC Morphology Not Reportable 08/29/17 16:53 Dimorphic RBCs Not Reportable 08/29/17 16:53 Polychromasia Not Reportable 08/29/17 16:53 Hypochromasia Not Reportable 08/29/17 16:53 Poikilocytosis Not Reportable 08/29/17 16:53 Anisocytosis 1+ 08/29/17 16:53 Microcytosis Not Reportable 08/29/17 16:53 Macrocytosis Not Reportable 08/29/17 16:53 Spherocytes Not Reportable 08/29/17 16:53 Pappenheimer Bodies Not Reportable 08/29/17 16:53 Sickle Cells Not Reportable 08/29/17 16:53 Target Cells Not Reportable 08/29/17 16:53 Tear Drop Cells Not Reportable 08/29/17 16:53 Ovalocytes Not Reportable 08/29/17 16:53 Helmet Cells Not Reportable 08/29/17 16:53 [place] Bodies Not Reportable 08/29/17 16:53 [place] Rings Not Reportable 08/29/17 16:53 [place] Cells Not Reportable 08/29/17 16:53 Bite Cells Not Reportable 08/29/17 16:53 Crenated Cell Not Reportable 08/29/17 16:53 Elliptocytes 1+ 08/29/17 16:53 Acanthocytes (Spur) Not Reportable 08/29/17 16:53 Rouleaux Not Reportable 08/29/17 16:53 Hemoglobin C Crystals Not Reportable 08/29/17 16:53 Schistocytes Not Reportable 08/29/17 16:53 Malaria parasites Not Reportable 08/29/17 16:53 Vasile Bodies Not Reportable 08/29/17 16:53 Hem Pathologist Commnt No 08/29/17 16:53 Sodium 143 mmol/L (137-145) 09/01/17 03:42 Potassium 4.2 mmol/L (3.6-5.0) 09/01/17 03:42 Chloride 103.3 mmol/L (98-107) 09/01/17 03:42 Carbon Dioxide 23 mmol/L (22-30) 09/01/17 03:42 Anion Gap 21 mmol/L 09/01/17 03:42 BUN 8 mg/dL (7-17) 09/01/17 03:42 Creatinine 0.2 mg/dL (0.7-1.2) L 09/01/17 03:42 Estimated GFR > 60 ml/min 09/01/17 03:42 BUN/Creatinine Ratio 40 % 09/01/17 03:42 Glucose 93 mg/dL (65-100) 09/01/17 03:42 Calcium 9.2 mg/dL (8.4-10.2) 09/01/17 03:42 Total Bilirubin 0.20 mg/dL (0.1-1.2) 08/29/17 16:53 AST 11 units/L (5-40) 08/29/17 16:53 ALT 13 units/L (7-56) 08/29/17 16:53 Alkaline Phosphatase 123 units/L (35-129) 08/29/17 16:53 Total Protein 7.4 g/dL (6.3-8.2) 08/29/17 16:53 Albumin 4.0 g/dL (3.9-5) 08/29/17 16:53 Albumin/Globulin Ratio 1.2 % 08/29/17 16:53 Lipase 19 units/L (13-60) 08/29/17 16:53 HCG, Qual Negative (Negative) 09/01/17 11:02 HCG, Quant 12.23 mIU/mL (0-4) H 08/29/17 16:53 Urine Color Yellow (Yellow) 08/29/17 17:00 Urine Turbidity Clear (Clear) 08/29/17 17:00 Urine pH 5.0 (5.0-7.0) 08/29/17 17:00 Ur Specific [place] 1.026 (1.003-1.030) 08/29/17 17:00 Urine Protein <15 mg/dl mg/dL (Negative) 08/29/17 17:00 Urine Glucose (UA) Neg mg/dL (Negative) 08/29/17 17:00 Urine Ketones 20 mg/dL (Negative) 08/29/17 17:00 Urine Blood Neg (Negative) 08/29/17 17:00 Urine Nitrite Neg (Negative) 08/29/17 17:00 Urine Bilirubin Neg (Negative) 08/29/17 17:00 Urine Urobilinogen < 2.0 mg/dL (<2.0) 08/29/17 17:00 Ur Leukocyte Esterase Neg (Negative) 08/29/17 17:00 Urine WBC (Auto) 1.0 /HPF (0.0-6.0) 08/29/17 17:00 Urine RBC (Auto) 3.0 /HPF (0.0-6.0) 08/29/17 17:00 U Epithel Cells (Auto) 1.0 /HPF (0-13.0) 08/29/17 17:00 Urine Mucus 3+ /HPF 08/29/17 17:00
--- NOTE | 2017-09-01 15:05 | Consultation ---
History of Present Illness - Reason for Consult Consult date: 09/01/17 S/P miscarriage - History of Present Illness Patient is a 32 year old , LMP 06/13/17 who was admitted for colitis on 08/29/17. She presented to the ER with symptoms of nausea/vomiting and mild abdominal pain. Upon interviewing the patient in the ER, she stated that she recently had a miscarriage. Her serum HCG was 12. Pelvic sonogram showed an empty uterus and normal adnexae. I was therefore called for a personal banking officer consult. I found the patient lying in bed comfortably. She was awake and alert. She said that she knew that she was from a home test about 3 weeks ago. She started to have spotting a few days later and on the 5th day, the bleeding got heavier and she had severe cramps. She then passed a large clot with tissues that night. Afterwards, the pain subsided and the bleeding got guinea pig breeder. She went to the ER the next day where serum HCG was 243 and pelvic sonogram showed an empty uterus. She was told that she had a miscarriage but to follow up with a it operations manager the same week. She has not done so. Her HCG was 12 on admission, became negative today. On admission, she had a CT scan which showed colitis. She was given IV antibiotics. She denies any bleeding or pain today. PMH: appendicitis, liver cyst. PSH: liver cyst removal, appendectomy. Allergy: NKDA. Car Rental Deliverer Hx: not known, pt has not seen a personal banking officer doctor in a while. OBSHx: x 3. Exam: Abd: sof, mild TN, no rebound. vagina: no lesion or bleeding. Cervix: closed, no CMT, no bleeding. Uterus: small, NT, mobile. Adnexae: no tenderness or mass. Past History Past Medical History: No medical history, anemia Past Surgical History: appendectomy, Other (removal of liver cyst) Social history: no significant social history Family history: no significant family history Medications and Allergies Allergies Allergy/AdvReac Type Severity Reaction Status Date / Time No Known Allergies Allergy Unverified 08/29/17 16:44 Home Medications Medication Instructions Recorded Confirmed Last Taken Type No Known Home Medications [No 08/30/17 08/30/17 Unknown History Reported Home Medications] Active Meds: Active Medications Acetaminophen (Tylenol) 650 mg PO Q4H PRN PRN Reason: Pain MILD(1-3)/Fever >100.5/VALDES Bisacodyl (Dulcolax) 10 mg [place] QDAY PRN PRN Reason: Constipation unrelieved by MOM Heparin Sodium (Porcine) (Heparin) 5,000 unit SUB-Q Q8HR [facility] Last Admin: 09/01/17 14:00 Dose: Not Given CEFTRIAXONE SODIUM 1 gm/ (Sodium Chloride) 20 mls @ 20 mls/10 min IV Q24HR PERFECTO PRN Reason: Protocol Last Admin: 09/01/17 10:52 Dose: 20 mls/10 min Metronidazole (Flagyl 500 Mg/100 Ml) 500 mg in 100 mls @ 100 mls/hr IV Q8HR [facility] Last Admin: 09/01/17 14:00 Dose: 100 mls/hr Magnesium Hydroxide (Milk Of Magnesia) 30 ml PO Q4H PRN PRN Reason: Constipation Morphine Sulfate (Morphine) 4 mg IV Q4H PRN PRN Reason: Pain , Severe (7-10) Last Admin: 09/01/17 12:07 Dose: 4 mg Ondansetron HCl (Zofran) 4 mg IV Q4H PRN PRN Reason: Nausea And Vomiting Last Admin: 09/01/17 14:00 Dose: 4 mg Exam - Constitutional Vitals: Temp Pulse Resp BP Pulse Ox 98.4 F 81 16 129/84 99 09/01/17 07:28 09/01/17 07:28 09/01/17 12:37 09/01/17 07:28 09/01/17 07:28 Results - Labs CBC & Chem 7: 09/01/17 03:42 09/01/17 03:42 Labs: Abnormal lab results 09/01/17 09/01/17 Range/Units 03:42 03:42 RBC 5.11 H (3.65-5.03) M/mm3 MCV 73 L (79-97) fl MCH 24 L (28-32) pg Creatinine 0.2 L (0.7-1.2) mg/dL Assessment and Plan - Patient Problems (1) Complete Current Visit: Yes Status: Acute Plan to address problem: I discussed the findings with the patient. I told her that her HCG is negative today. Her history of passing clots and tissues, followed by decreasing serum HCG correlates with a complete . Her gynecological exam is unremarkable today. No specific gynecological recommendation at this time. After her discharge from the hospital, patient will need to see a personal banking officer doctor for continued care.
[2017-09-02] MEDS: MORPHINE IV PRN (00:37)
[2017-09-02] MEDS: ZOFRAN IV PRN ×2 (00:38→05:53)
[2017-09-02] MEDS: FLAGYL 500 MG/100 ML 500 MG/100 ML BAG IV SCH (05:53)
[2017-09-02] MEDS: HEPARIN SUB-Q SCH (05:57)
[2017-09-02] MEDS: cefTRIAXone 1 GM in NACL 0.9% 20 ML IV SCH (09:45)
--- NOTE | 2017-09-02 10:12 | Progress Note ---
Assessment and Plan Assessment and plan: Patient is a 32-year-old woman who was . Was told that she might have been having miscarriage 2 weeks ago and another facility. Presents now with abdominal pain. HCG numbers are too low to correlates with the duration of her supposedly , and imaging shows no fetus and the uterus. Therefore it is most likely that she had a miscarriage. - Sepsis colitis Current Visit: Yes Status: Acute Plan to address problem: Continue antibiotics. - Miscarriage Current Visit: Yes Status: Acute Plan to address problem: HOUSE SHORER has been consulted, will follow-up the recommendations - Colitis Current Visit: Yes Status: Acute Plan to address problem: continue abx, IVF and pain meds as needed - Intractable nausea and vomiting, with liquids, will downgrade diet to NPO and consult GI. Patient has not vomited since her diet was downgraded yesterday. Await GI evaluation History Interval history: Patient was seen and examined. Follow-up on current diagnosis/nausea vomiting still present even with liquids. Overnight uneventful. Patient denies any chest pain, shortness breath, or severe headaches. Imaging, nursing note, chart , labs and old chart reviewed. Discussed with patient. Hospitalist Physical - Physical exam Narrative exam: GEN: Thin BMI 17.6 NAD, AWAKE, ALERT, ORIENTATED 3 HEENT: NCAT, EOMI, PERRL, OP Clear NECK: supple, no adenopathy, no thyromegaly, no JVD CVS/HEART: RRR, NORMAL S1S2, NO JVD, pulses present bilaterally CHEST/LUNGS: CTA B, Symmetrical chest expansion, good air entry bilaterally GI/Abdomen: soft, no tenderness, no distention, good bowel sounds, pulsatile aortic area because she is so thin, no guarding or rebound /Bladder: no suprapubic tenderness, no CVA or paraspinal tenderness EXT/Skin: no c/c/e, no obvious rash MSK: FROM x 4 Neuro: CN 2-12 grossly intact, no new focal deficits Psych: calm - Constitutional Vitals: Temp Pulse Resp BP Pulse Ox 98.6 F 103 H 18 137/86 100 09/02/17 08:07 09/02/17 08:07 09/02/17 08:07 09/02/17 08:07 09/02/17 08:07 General appearance: Present: no acute distress, well-nourished Results - Labs CBC & Chem 7: 09/01/17 03:42 09/01/17 03:42 Labs: Laboratory Last Values WBC 6.7 K/mm3 (4.5-11.0) 09/01/17 03:42 RBC 5.11 M/mm3 (3.65-5.03) H 09/01/17 03:42 Hgb 12.4 gm/dl (10.1-14.3) 09/01/17 03:42 Hct 37.3 % (30.3-42.9) 09/01/17 03:42 MCV 73 fl (79-97) L 09/01/17 03:42 MCH 24 pg (28-32) L 09/01/17 03:42 MCHC 33 % (30-34) 09/01/17 03:42 RDW 13.7 % (13.2-15.2) 09/01/17 03:42 Plt Count 363 K/mm3 (140-440) 09/01/17 03:42 Lymph % (Auto) 22.4 % (13.4-35.0) 08/31/17 05:15 [place] % (Auto) 10.1 % (0.0-7.3) H 08/31/17 05:15 Eos % (Auto) 0.2 % (0.0-4.3) 08/31/17 05:15 Baso % (Auto) 0.3 % (0.0-1.8) 08/31/17 05:15 Lymph # 3.1 K/mm3 (1.2-5.4) 08/31/17 05:15 [place] # 1.4 K/mm3 (0.0-0.8) H 08/31/17 05:15 Eos # 0.0 K/mm3 (0.0-0.4) 08/31/17 05:15 Baso # 0.0 K/mm3 (0.0-0.1) 08/31/17 05:15 Add Manual Diff Complete 08/29/17 16:53 Total Counted 100 08/29/17 16:53 Seg Neutrophils % 67.0 % (40.0-70.0) 08/31/17 05:15 Seg Neuts % (Manual) 87.0 % (40.0-70.0) H 08/29/17 16:53 Band Neutrophils % 4.0 % 08/29/17 16:53 Lymphocytes % (Manual) 9.0 % (13.4-35.0) L 08/29/17 16:53 Reactive Lymphs % (Man) 0 % 08/29/17 16:53 Monocytes % (Manual) 0 % (0.0-7.3) 08/29/17 16:53 Eosinophils % (Manual) 0 % (0.0-4.3) 08/29/17 16:53 Basophils % (Manual) 0 % (0.0-1.8) 08/29/17 16:53 Metamyelocytes % 0 % 08/29/17 16:53 Myelocytes % 0 % 08/29/17 16:53 Promyelocytes % 0 % 08/29/17 16:53 Blast Cells % 0 % 08/29/17 16:53 Nucleated RBC % Not Reportable 08/29/17 16:53 Seg Neutrophils # 9.2 K/mm3 (1.8-7.7) H 08/31/17 05:15 Seg Neutrophils # Man 20.6 K/mm3 (1.8-7.7) H 08/29/17 16:53 Band Neutrophils # 0.9 K/mm3 08/29/17 16:53 Lymphocytes # (Manual) 2.1 K/mm3 (1.2-5.4) 08/29/17 16:53 Abs React Lymphs (Man) 0.0 K/mm3 08/29/17 16:53 Monocytes # (Manual) 0.0 K/mm3 (0.0-0.8) 08/29/17 16:53 Eosinophils # (Manual) 0.0 K/mm3 (0.0-0.4) 08/29/17 16:53 Basophils # (Manual) 0.0 K/mm3 (0.0-0.1) 08/29/17 16:53 Metamyelocytes # 0.0 K/mm3 08/29/17 16:53 Myelocytes # 0.0 K/mm3 08/29/17 16:53 Promyelocytes # 0.0 K/mm3 08/29/17 16:53 Blast Cells # 0.0 K/mm3 08/29/17 16:53 WBC Morphology Not Reportable 08/29/17 16:53 Hypersegmented Neuts Not Reportable 08/29/17 16:53 Hyposegmented Neuts Not Reportable 08/29/17 16:53 Hypogranular Neuts Not Reportable 08/29/17 16:53 Smudge Cells Not Reportable 08/29/17 16:53 Toxic Granulation Not Reportable 08/29/17 16:53 Toxic Vacuolation Not Reportable 08/29/17 16:53 Dohle Bodies Not Reportable 08/29/17 16:53 Pelger-Huet Anomaly Not Reportable 08/29/17 16:53 Lee Rods Not Reportable 08/29/17 16:53 Platelet Estimate Consistent w auto 08/29/17 16:53 Clumped Platelets Not Reportable 08/29/17 16:53 Plt Clumps, EDTA Not Reportable 08/29/17 16:53 Large Platelets Not Reportable 08/29/17 16:53 Giant Platelets Not Reportable 08/29/17 16:53 Platelet Satelliting Not Reportable 08/29/17 16:53 Plt Morphology Comment Not Reportable 08/29/17 16:53 RBC Morphology Not Reportable 08/29/17 16:53 Dimorphic RBCs Not Reportable 08/29/17 16:53 Polychromasia Not Reportable 08/29/17 16:53 Hypochromasia Not Reportable 08/29/17 16:53 Poikilocytosis Not Reportable 08/29/17 16:53 Anisocytosis 1+ 08/29/17 16:53 Microcytosis Not Reportable 08/29/17 16:53 Macrocytosis Not Reportable 08/29/17 16:53 Spherocytes Not Reportable 08/29/17 16:53 Pappenheimer Bodies Not Reportable 08/29/17 16:53 Sickle Cells Not Reportable 08/29/17 16:53 Target Cells Not Reportable 08/29/17 16:53 Tear Drop Cells Not Reportable 08/29/17 16:53 Ovalocytes Not Reportable 08/29/17 16:53 Helmet Cells Not Reportable 08/29/17 16:53 [place]aver-[place]edley Bodies Not Reportable 08/29/17 16:53 [place] Rings Not Reportable 08/29/17 16:53 Evan Cells Not Reportable 08/29/17 16:53 Bite Cells Not Reportable 08/29/17 16:53 Crenated Cell Not Reportable 08/29/17 16:53 Elliptocytes 1+ 08/29/17 16:53 Acanthocytes (Spur) Not Reportable 08/29/17 16:53 Rouleaux Not Reportable 08/29/17 16:53 Hemoglobin C Crystals Not Reportable 08/29/17 16:53 Schistocytes Not Reportable 08/29/17 16:53 Malaria parasites Not Reportable 08/29/17 16:53 Vasile Bodies Not Reportable 08/29/17 16:53 Hem Pathologist Commnt No 08/29/17 16:53 Sodium 143 mmol/L (137-145) 09/01/17 03:42 Potassium 4.2 mmol/L (3.6-5.0) 09/01/17 03:42 Chloride 103.3 mmol/L (98-107) 09/01/17 03:42 Carbon Dioxide 23 mmol/L (22-30) 09/01/17 03:42 Anion Gap 21 mmol/L 09/01/17 03:42 BUN 8 mg/dL (7-17) 09/01/17 03:42 Creatinine 0.2 mg/dL (0.7-1.2) L 09/01/17 03:42 Estimated GFR > 60 ml/min 09/01/17 03:42 BUN/Creatinine Ratio 40 % 09/01/17 03:42 Glucose 93 mg/dL (65-100) 09/01/17 03:42 Calcium 9.2 mg/dL (8.4-10.2) 09/01/17 03:42 Total Bilirubin 0.20 mg/dL (0.1-1.2) 08/29/17 16:53 AST 11 units/L (5-40) 08/29/17 16:53 ALT 13 units/L (7-56) 08/29/17 16:53 Alkaline Phosphatase 123 units/L (35-129) 08/29/17 16:53 Total Protein 7.4 g/dL (6.3-8.2) 08/29/17 16:53 Albumin 4.0 g/dL (3.9-5) 08/29/17 16:53 Albumin/Globulin Ratio 1.2 % 08/29/17 16:53 Lipase 19 units/L (13-60) 08/29/17 16:53 HCG, Qual Negative (Negative) 09/01/17 11:02 HCG, Quant 12.23 mIU/mL (0-4) H 08/29/17 16:53 Urine Color Yellow (Yellow) 08/29/17 17:00 Urine Turbidity Clear (Clear) 08/29/17 17:00 Urine pH 5.0 (5.0-7.0) 08/29/17 17:00 Ur Specific [place] 1.026 (1.003-1.030) 08/29/17 17:00 Urine Protein <15 mg/dl mg/dL (Negative) 08/29/17 17:00 Urine Glucose (UA) Neg mg/dL (Negative) 08/29/17 17:00 Urine Ketones 20 mg/dL (Negative) 08/29/17 17:00 Urine Blood Neg (Negative) 08/29/17 17:00 Urine Nitrite Neg (Negative) 08/29/17 17:00 Urine Bilirubin Neg (Negative) 08/29/17 17:00 Urine Urobilinogen < 2.0 mg/dL (<2.0) 08/29/17 17:00 Ur Leukocyte Esterase Neg (Negative) 08/29/17 17:00 Urine WBC (Auto) 1.0 /HPF (0.0-6.0) 08/29/17 17:00 Urine RBC (Auto) 3.0 /HPF (0.0-6.0) 08/29/17 17:00 U Epithel Cells (Auto) 1.0 /HPF (0-13.0) 08/29/17 17:00 Urine Mucus 3+ /HPF 08/29/17 17:00
--- NOTE | 2017-09-02 11:00 | Event Note ---
Date: 09/02/17 full consult dictated - pt improved, advance diet - from GI standpoint if tolerate po ok tod/c on po antibiotics - diet advanced to soft - will follow
--- NOTE | 2017-09-02 13:21 | Consultation ---
INDICATION: 1. Abdominal pain. 2. Colitis. HISTORY OF PRESENT ILLNESS: The patient is a 32-year-old black female who is admitted for abdominal pain. The patient reports in June, she last had a menstrual cycle and had a home test, which confirmed that she was . She subsequently presented to an outside hospital with right vaginal bleeding, was told that she probably was miscarrying. The patient now presented to the hospital on 08/30/2017 with lower abdominal pain with nausea and vomiting. She subsequently had a CT scan, which showed colitis and subsequently admitted and GI consulted. She denies any fevers or chills. She denies any weight loss. She denies any other specific problems or complaints including heartburn, reflux or ingestion. PAST MEDICAL HISTORY: Negative. MEDICATIONS: See chart. ALLERGIES: No known drug allergies. SOCIAL HISTORY: Reports social alcohol, denies tobacco. FAMILY HISTORY: Negative for colon cancer. REVIEW OF SYSTEMS: GENERAL: Reports mild weakness. HEENT: No visual complaints or tinnitus. PULMONARY: Denies shortness of breath, chest pain. GASTROINTESTINAL: Reports abdominal pain, not much improved. All points of 13-point review of systems otherwise negative. PHYSICAL EXAMINATION: VITALS SIGNS: Temperature of 98.6, pulse 100, respirations 20, blood pressure 137/86. GENERAL: Fairly thin black female, in no acute distress. HEENT: Pupils are equal, round and reactive to light and accommodation. Extraocular muscles intact. PULMONARY: Clear to auscultation bilaterally. CARDIOVASCULAR: Regular rhythm. Normal S1, S2. ABDOMEN: Positive bowel sounds, soft. No guarding, no rebound. SKIN: No obvious rashes. LABORATORY DATA: Pertinent for white count of 6.7, hemoglobin and hematocrit of 12.4 and 37.3, platelet count of 363. Chem-7 within normal limits. LFTs within normal limits. IMAGING DATA: CT scan of abdomen and pelvis done on 08/30/2017, showed signs of thickening of the sigmoid and left colon, consistent with colitis, but otherwise benign. ASSESSMENT AND PLAN: A 32-year-old black female who probably had a recent miscarriage, now presented with abdominal pain. The CT scan consistent with colitis. The patient has done well. She is tolerating p.o. Her pain has much improved. Her white count, which was initially in the 20s, is now normal. Management as noted below. PLAN: 1. Review CT scan. 2. Advance diet as tolerated with the patient to go to regular diet if okay. 3. From a GI standpoint, okay to switch to oral antibiotics. 4. If tolerating p.o., okay to discharge from GI standpoint. Follow up as an outpatient. 5. We will follow. 6. No plans for colonoscopy or endoscopic evaluation at this time. [facility]# [id number] PAT/GAETANO BAHENA
--- NOTE | 2017-09-02 15:34 | Discharge Summary ---
Providers - Providers Date of Admission: 08/30/17 03:56 Date of discharge: 09/02/17 Attending physician: BELLE CERDA 08/30/17 07:25 Consult to Physician [CONS] Routine Consulting Provider: MAXIM SINGH Reason For Exam: miscarriage Place consult to:: Bj Notified:: yes Phone number called:: [phone] Time called:: 10:30 Comment:: left message on cell phone at 1030a and 1156p 09/01/17 12:32 Consult to Physician [CONS] Routine Consulting Provider: CHRISTEN SILVA Reason For Exam: intractable n/v, colitis Place consult to:: dr. silva Notified:: office Phone number called:: Was contact made?: Yes If yes, spoke with:: laurence Time called:: 13:32 Primary care physician: [employer] Hospitalization Condition: Stable Hospital course: Patient is a 32-year-old woman who was . Was told that she might have been having miscarriage 2 weeks ago and another facility. Presents now with abdominal pain. HCG numbers are too low to correlates with the duration of her supposedly , and imaging shows no fetus and the uterus. Therefore it is most likely that she had a miscarriage. - Sepsis colitis Current Visit: Yes Status: Acute Plan to address problem: Continue antibiotics. - Miscarriage Current Visit: Yes Status: Acute Plan to address problem: APPOINTMENT SPECIALIST has been consulted, will follow-up the recommendations - Colitis Current Visit: Yes Status: Acute Plan to address problem: continue abx, IVF and pain meds as needed o - Intractable nausea and vomiting, with liquids, will downgrade diet to NPO and consult GI. Patient has not vomited since her diet was downgraded yesterday. Await GI evaluation==.ok to d/c per gi if able to tolerate po Disposition: DC-01 TO HOME OR SELFCARE Time spent for discharge: 33 min Core Measure Documentation - Palliative Care Palliative Care/ Comfort Measures: Not Applicable - Core Measures Any of the following diagnoses?: none - VTE Discharge Requirements Deep Vein Thrombosis/Pulmonary Embolism Present on Admission: No Has pt received <5 days of overlap therapy or INR<2.0: No Anticoagulant overlap therapy prescribed at discharge: No Contraindication No Overlap Therapy order at DC: Not Indicated Exam - Physical Exam Narrative exam: GEN: Thin BMI 17.6 NAD, AWAKE, ALERT, ORIENTATED 3 HEENT: NCAT, EOMI, PERRL, OP Clear NECK: supple, no adenopathy, no thyromegaly, no JVD CVS/HEART: RRR, NORMAL S1S2, NO JVD, pulses present bilaterally CHEST/LUNGS: CTA B, Symmetrical chest expansion, good air entry bilaterally GI/Abdomen: soft, no tenderness, no distention, good bowel sounds, pulsatile aortic area because she is so thin, no guarding or rebound /Bladder: no suprapubic tenderness, no CVA or paraspinal tenderness EXT/Skin: no c/c/e, no obvious rash MSK: FROM x 4 Neuro: CN 2-12 grossly intact, no new focal deficits Psych: calm - Constitutional Vitals: Temp Pulse Resp BP Pulse Ox 98.6 F 103 H 18 137/86 100 09/02/17 08:07 09/02/17 08:07 09/02/17 08:07 09/02/17 08:07 09/02/17 08:07 Plan Diet: clear liquids, advance as tolerated Follow up with: ANNI DAVIS MD [Primary Care Provider] - 3-5 Days CHRISTEN SILVA MD [Staff Physician] - 7 Days MAXIM SINGH MD [Staff Physician] - 7 Days Prescriptions: Ciprofloxacin HCl [Ciprofloxacin TAB] 500 mg PO BID #5 day
[2017-09-02 17:46] VITALS: BP 142/86
== END 2017-09-02 18:33 | disposition home or self-care (01) | DRG 872 ==
LOC: ED 16:16 → 3A 08-30 03:56
PROVIDERS: ADMIT Internal Medicine; ATTEND Internal Medicine
DX: A41.9 Sepsis, unspecified organism (principal); K52.9 Noninfective gastroenteritis and colitis, unspecified
CPT/HCPCS: 36415; 74177; 76801; 76817; 80048; 80053; 81001; 83690; 84702; 84703; 85007; 85025; 85027; 87040; 96361; 96365; 96375; 96376; J0696; J1200; J1644; J2270; J2405; J2543; J7030; Q9967